=== PATIENT | male | born 1955 | race Hispanic/Latino ===

== ENCOUNTER 2017-09-02 22:41 | Emergency (ER) | payer MEDICARE ==
[2017-09-02 22:43] VITALS: BMI 34.3
[2017-09-02 22:45] VITALS: RESP 18; TEMP 96.1; O2SAT 99
[2017-09-02 23:18] LABS: BASO # 0.1 K/uL (0.0-0.2); BASO % 0.8 % (0.0-2.0); EOS # 0.1 K/uL (0.0-0.7); EOS % 0.4 % (0.0-4.0); HEMATOCRIT 41.8 % (35.0-51.0); LYMPH # 2.3 K/uL (1.0-4.3); LYMPH % 17.9 % (20.0-40.0); MEAN CELL VOLUME 88.4 fl (80.0-94.0); MEAN CORPUSCULAR HEMOGLOBIN 29.2 pg (27.0-31.0); MEAN PLATELET VOLUME 8.1 fl (7.2-11.7); MONO # 0.9 K/uL (0.0-0.8); NEUT # 9.3 K/uL (1.8-7.0); NEUT % 73.9 % (50.0-75.0); NRBC % 0.1 % (0.0-0.0); RED CELL DISTRIBUTION WIDTH 12.7 % (11.5-14.5); WHITE BLOOD COUNT 12.6 K/uL (4.8-10.8)
[2017-09-02] MEDS ORDERED: Sodium Chloride 0.9% 1,000 ML IV STA (23:23)
[2017-09-02 23:39] LABS: PARTIAL THROMBOPLASTIN TIME 27.4 Seconds (25.6-37.1)
--- NOTE | 2017-09-02 23:41 | ED PDOC ---
Syncope/Near Syncope/Dizziness Time Seen by Provider: 09/02/17 22:54 Chief Complaint (Nursing): Syncope Chief Complaint (Provider): Syncope History Per: Patient History/Exam Limitations: no limitations Onset/Duration Of Symptoms: Mins ([employer]) Current Symptoms Are (Timing): Still Present Activity At Onset Of Symptoms: Standing Associated Symptoms Preceding Syncopal Episode: Lightheadedness Seizure Or Post-ictal Symptoms: None Possible Causative Factor(s): Decreased PO Intake Fall Associated With With Symptoms: No Injury As Result Of Fall Additional Complaint(s): 62 year old male presents to ED with complaints of syncope [employer] and has no past medical history of chronic back pain, HTN, anxiety, and arthritis. Patient states he was at [employer] when he experienced sudden onset of lightheadedness, SOB, and diaphoresis before losing consciousness. (-) convulsive activity or post-ictal state. (+) hit head upon losing consciousness. Patient notes that he has fainted in the past when he has not eaten enough. (+) diarrhea x4 episodes ( non-bloody), headache, and nausea, (-) vomiting. Confirms last eating x9 hours [employer], going to the gym x6.5 hours [employer], and taking Percocet for his chronic back pain x5 hours [employer]. PCP: Doctor at [facility] in [place] Against Medical Advice - AMA Patient Left Against Medical Advice: The patient declines admission to the hospital and wishes to leave the Emergency Department. This action is against my medical advice. This decision was made with informed refusal. The patient was told that admission to the hospital is necessary. Explanation of the reasons why were discussed. The risks of leaving were explained to the patient and include, but are not limited to, worsening of known or currently unknown conditions, permanent disability and from undiagnosed or untreated conditions. The patient has the capacity to make this informed decision and understands my explanation of the current medical problem and risks of leaving. The patient voluntarily accepts these risks and signed an AMA form documenting our conversation. The patient was given the opportunity to ask questions and reconsider. The patient was encouraged to return to the Emergency Department at any time for further care. Past Medical History Reviewed: Historical Data, Nursing Documentation, Vital Signs Vital Signs: Last Vital Signs Temp 96.1 F L 09/02/17 22:43 Pulse 122 H 09/02/17 22:43 Resp 18 09/02/17 22:43 BP 110/64 09/02/17 22:43 Pulse Ox 99 09/02/17 22:43 - Medical History PMH: Anxiety, Arthritis, HTN, Chronic Pain (back) - Surgical History Surgical History: Back Surgery (spine surgery) - Family History Family History: States: No Known Family Hx - Social History Current smoker - smoking cessation education provided: No Ex-Smoker (has not smoked in the last 12 months): No Alcohol: None - Allergies Allergies/Adverse Reactions: Allergies Allergy/AdvReac Type Severity Reaction Status Date / Time No Known Allergies Allergy Verified 09/02/17 22:43 Review of Systems ROS Statement: Except As Marked, All Systems Reviewed And Found Negative (and as per HPI) Constitutional: Positive for: Sweats Respiratory: Positive for: Shortness of Breath Gastrointestinal: Positive for: Nausea, Diarrhea. Negative for: Vomiting Neurological: Positive for: Headache, Other ((+) LOC, lightheadedness) Physical Exam - Reviewed Nursing Documentation Reviewed: Yes Vital Signs Reviewed: Yes - Physical Exam Appears: Positive for: Non-toxic, No Acute Distress Head Exam: Positive for: ATRAUMATIC, NORMOCEPHALIC Skin: Positive for: Warm, Pallor Eye Exam: Positive for: EOMI, PERRL ENT: Positive for: Other (dry mucus membranes) Neck: Positive for: Painless ROM, Supple Cardiovascular/Chest: Positive for: Regular Rate, Rhythm, Chest Non Tender. Negative for: Murmur Gastrointestinal/Abdominal: Positive for: Soft. Negative for: Tenderness Back: Positive for: Normal Inspection Extremity: Positive for: Normal ROM. Negative for: Deformity Lymphatic: Negative for: Adenopathy Neurologic/Psych: Positive for: Alert, Oriented (x3), Mood/Affect (mildly anxious). Negative for: Motor/Sensory Deficits, Aphasia, Facial Droop - Laboratory Results Result Diagrams: 09/02/17 23:14 09/02/17 23:14 - ECG O2 Sat by Pulse Oximetry: 99 (RA) Pulse Ox Interpretation: Normal Medical Decision Making Medical Decision Makin Initial impression: syncope DDx: dehydration, electrolytic abnormality, enteritis, arrhythmia, pulmonary embolism Initial plan: * T&S * CT HEAD * EKG * EtOH serum * Labs * UDrug * Magnesium * Phosphorus * Trop I * D Dimer * PTT/PT * CXR * NS IV * Zofran Inj 8mg IV * Re-eval 0007 CT HEAD FINDINGS: Brain: There is mild diffuse cerebral atrophy present, consistent with this patient's age. There are coarse parasagittal calcifications most likely secondary to benign dural calcification. No hemorrhage. No significant white matter disease. Ventricles: Unremarkable. No ventriculomegaly. Bones/joints: Unremarkable. No acute fracture. Soft tissues: Unremarkable. Sinuses: Unremarkable as visualized. No acute sinusitis. Mastoid air cells: Unremarkable as visualized. No mastoid effusion. IMPRESSION: No acute intracranial findings. Elevated BUN/Cr. Advised hospitalization, concern for acute kidney failure and need for continued hospital management to prevent worsening, which if left untreated could lead to , permanent severe disability, or need for dialysis. Pt prefers to leave. Understands risks and wants to leave anyway. Requesting results to be provided to him. AMA signed. Scribe Attestation: Documented by Blanche Marcum acting as a scribe for Faiza Hameed MD. Scribe Attestation: All medical record entries made by the Scribe were at my direction and personally dictated by me. I have reviewed the chart and agree that the record accurately reflects my personal performance of the history, physical exam, medical decision making, and the department course for this patient. I have also personally directed, reviewed, and agree with the discharge instructions and disposition. Disposition - Clinical Impression Clinical Impression: Syncope, Acute renal insufficiency - Disposition Disposition Time: 00:00 Condition: UNKNOWN Additional Instructions: RETURN TO ER IMMEDIATELY FOR FURTHER EVALUATION AND MANAGEMENT Instructions: Against Medical Advice (ED) Forms: [employer] ([place])
[2017-09-02 23:53] LABS: ALB/GLOB RATIO 1.5 (1.0-2.1); ALCOHOL SERUM < 10 mg/dl (0-10); ALKALINE PHOSPHATASE 97 U/L (38-126); ALT/SGPT 42 U/L (21-72); AST/SGOT 29 U/L (17-59); BILIRUBIN,TOTAL 0.6 mg/dl (0.2-1.3); BLOOD UREA NITROGEN 36 mg/dl (9-20); CALCIUM 9.7 mg/dL (8.4-10.2); CARBON DIOXIDE 24 mmol/L (22-30); CHLORIDE 105 mmol/L (98-107); GFR AFRICAN-AMERICAN 35; GLUCOSE,RANDOM 103 mg/dL (75-110); MAGNESIUM 2.1 MG/DL (1.6-2.3); PHOSPHOROUS 3.7 mg/dl (2.5-4.5); POTASSIUM 3.9 MMOL/L (3.6-5.0); SODIUM 143 mmol/l (132-148); TOTAL PROTEIN 7.8 G/DL (6.3-8.2)
--- NOTE | 2017-09-03 00:08 | CT ---
EXAM: CT Head Without Intravenous Contrast CLINICAL HISTORY: 62 years old, male; Signs and symptoms; Syncope and collapse; Additional info: Syncope head injry TECHNIQUE: Axial computed tomography images of the head/brain without intravenous contrast. All CT scans at this facility use one or more dose reduction techniques, viz.: automated exposure control; ma/kV adjustment per patient size (including targeted exams where dose is matched to indication; i.e. head); or iterative reconstruction technique. Coronal and sagittal reformatted images were created and reviewed. COMPARISON: No relevant prior studies available. FINDINGS: Brain: There is mild diffuse cerebral atrophy present, consistent with this patient's age. There are coarse parasagittal calcifications most likely secondary to benign dural calcification. No hemorrhage. No significant white matter disease. Ventricles: Unremarkable. No ventriculomegaly. Bones/joints: Unremarkable. No acute fracture. Soft tissues: Unremarkable. Sinuses: Unremarkable as visualized. No acute sinusitis. Mastoid air cells: Unremarkable as visualized. No mastoid effusion. IMPRESSION: No acute intracranial findings.
[2017-09-03 00:47] VITALS: BP 123/78; PULSE 84
--- NOTE | 2017-09-03 14:06 | RAD ---
HISTORY: Syncope, shortness of breath. COMPARISON: No prior. FINDINGS: LUNGS: No active pulmonary disease. PLEURA: No significant pleural effusion identified, no pneumothorax apparent. CARDIOVASCULAR: No radiographic findings to suggest acute or significant cardiovascular disease. OSSEOUS STRUCTURES: No significant abnormalities. VISUALIZED UPPER ABDOMEN: Distended stomach of uncertain etiology and significance. OTHER FINDINGS: Orthopedic hardware related to ACDF. IMPRESSION: No active disease.
--- NOTE | 2017-09-05 11:58 | CARD ---
APPROVED REPORT EKG Measurement Heart [id number] <Conclusion> Sinus tachycardia Otherwise normal ECG
== END 2017-09-03 00:20 | disposition left against medical advice (07) ==
LOC: H.ER 22:41
DX: R55 Syncope and collapse (principal); N17.9 Acute kidney failure, unspecified; F41.9 Anxiety disorder, unspecified; G89.29 Other chronic pain; I10 Essential (primary) hypertension; N28.9 Disorder of kidney and ureter, unspecified
CPT/HCPCS: 70450; 71010; 80053; 83735; 84100; 84484; 85025; 85378; 85610; 85730; 86850; 86900; 93005; 96360; 99285; G0480; J2405; J7040